=== PATIENT | female | born 1955 | race Caucasian/White ===

== ENCOUNTER 2018-11-16 08:00 | Outpatient (CLI) | payer OTHER ==
[2018-11-16 18:30] LABS: PT - PROTHROMBIN TIME 22.2 secs (9.9-12.6)
== END 2018-11-16 23:59 | disposition home or self-care (01) ==
LOC: LAB.F 08:00
DX: I48.0 Paroxysmal atrial fibrillation (principal); Z79.01 Long term (current) use of anticoagulants
CPT/HCPCS: 36415; 85610

== ENCOUNTER 2019-01-03 14:03 | Outpatient (CLI) | payer OTHER | END 2019-01-03 14:04 | disposition home or self-care (01) | LOC: LAB.F 14:03 | PROVIDERS: ATTEND Internal Medicine | DX: I48.0 Paroxysmal atrial fibrillation (principal) | CPT/HCPCS: 85610 ==

== ENCOUNTER 2019-04-14 | Outpatient (CLI) | payer OTHER | END 2019-04-14 07:42 | disposition critical access hospital (66) | DX: R10.9 Unspecified abdominal pain (principal) | CPT/HCPCS: A0425; A0427 ==

== ENCOUNTER 2019-04-14 08:09 | Inpatient (IN) | payer OTHER ==
[2019-04-14] MEDS ORDERED: SODIUM CHLORIDE 0.9% 1,000 ML IV ONE ×3 (08:20→14:20)
[2019-04-14] MEDS ORDERED: HYDROmorphone 1 MG/ML CARPUJECT IVP STA ×3 (08:20→12:19)
[2019-04-14] MEDS ORDERED: ONDANSETRON 4 MG/2 ML VIAL IVP STA (08:20)
--- NOTE | 2019-04-14 08:24 | ED Physician Documentation ---
PD HPI ABD PAIN - Stated complaint Stated Complaint: ABD PX - Chief complaint Chief Complaint: Abd Pain - History obtained from History obtained from: Patient - History of Present Illness Timing - onset: How many hours ago (3) Timing - details: Abrupt onset, Still present Quality: Pain Location: RUQ Associated symptoms: No: Fever, Nausea, Vomiting, Diarrhea, Dysuria Similar symptoms before: Has not had sx before - Treatment prior to arrival Treatment prior to arrival: Medics administered 250 mcg Fentanyl. - Additional information Additional information: The patient is a 63-year-old female who presents via ambulance complaining of right-sided abdominal pain. Her pain started abruptly about 3 hours prior to arrival, awaking her from sleep. She denies associated fever, nausea or vomiting, or dysuria. She denies history of similar symptoms in the past. She is 3 years status post bariatric surgery. She is also status post appendectomy. She has history of atrial fibrillation, and is on warfarin. She also has history of type 2 diabetes. She and her are traveling in a motor home, and have no local physician. Review of Systems Constitutional: denies: Fever Ears: denies: Tinnitus/ringing Nose: denies: Congestion Throat: denies: Sore throat Cardiac: denies: Chest pain / pressure Respiratory: denies: Dyspnea, Cough GI: reports: Abdominal Pain. denies: Nausea, Vomiting, Diarrhea : denies: Dysuria Skin: denies: Rash Musculoskeletal: denies: Back pain Neurologic: denies: Focal weakness, Numbness, Headache PD PAST MEDICAL HISTORY - Past Medical History Cardiovascular: Atrial fibrillation Endocrine/Autoimmune: Type 2 diabetes - Past Surgical History General: Appendectomy, Gastric surgery - Present Medications Home Medications: Ambulatory Orders Medication Instructions Recorded Confirmed Atorvastatin [Lipitor] 20 mg DAILY 04/14/19 04/14/19 Cyanocobalamin (Vitamin B-12) 1 04/14/19 [Cyanocobalamin Injection] Metoprolol Tartrate 25 mg PO DAILY 04/14/19 04/14/19 Warfarin [Coumadin] 2 mg PO 1400 04/14/19 04/14/19 metFORMIN [Glucophage] 500 mg BID 04/14/19 04/14/19 - Allergies Allergies/Adverse Reactions: Allergies Allergy/AdvReac Type Severity Reaction Status Date / Time codeine Allergy Unknown Verified 04/14/19 08:20 adhesive tape AdvReac Unknown Verified 04/14/19 08:20 - Living Situation Living Situation: reports: With spouse/s.o. - Social History Additional Social History: Traveling in a motor home from [facility]. PD ED PE NORMAL - Vitals Vital signs reviewed: Yes (Hypertensive) - General General: Alert and oriented X 3, Well developed/nourished, Other (Appears uncomfortable.) - HEENT HEENT: Atraumatic, Moist mucous membranes - Neck Neck: Supple, no meningeal sign, No adenopathy - Cardiac Cardiac: RRR - Respiratory Respiratory: No respiratory distress, Clear bilaterally - Abdomen Abdomen: Soft, Other (Tenderness to palpation in the right upper quadrant, without rebound or guarding.) - Back Back: No CVA TTP - Derm Derm: No rash - Extremities Extremities: No edema, No calf tenderness / cord - Neuro Neuro: Alert and oriented X 3, No motor deficit, Normal speech Results - Vitals Vitals: Vital Signs - 24 hr 04/14/19 04/14/19 04/14/19 08:09 08:30 09:30 Temperature 36.6 C Heart Rate 67 56 L 66 Respiratory 20 20 20 Rate Blood Pressure 150/116 H 165/64 H 143/61 H O2 Saturation 100 95 94 04/14/19 10:30 Temperature Heart Rate 70 Respiratory 20 Rate Blood Pressure 162/68 H O2 Saturation 99 Oxygen O2 Source Room air - Labs Labs: Laboratory Tests 04/14/19 04/14/19 04/14/19 08:32 08:32 08:32 WBC 6.1 RBC 3.41 L Hgb 10.6 L Hct 31.7 L MCV 93.0 MCH 31.1 H MCHC 33.4 RDW 13.5 Plt Count 134 MPV 11.8 H Neut # (Auto) 3.9 Lymph # (Auto) 1.6 [place] # (Auto) 0.5 Eos # (Auto) 0.1 Baso # (Auto) 0.0 Absolute Nucleated RBC 0.00 Nucleated RBC % 0.0 PT 36.0 H INR 3.3 H Sodium 142 Potassium 3.7 Chloride 108 Carbon Dioxide 18 L Anion Gap 16.0 H BUN 27 H Creatinine 1.1 H Estimated GFR (MDRD) 50 L Glucose 147 H Calcium 9.7 Total Bilirubin 0.8 AST 40 ALT 41 Alkaline Phosphatase 71 Total Protein 7.1 Albumin 4.0 Globulin 3.1 Albumin/Globulin Ratio 1.3 Lipase 71 H Urine Color Urine Clarity Urine pH Ur Specific Gary Urine Protein Urine Glucose (UA) Urine Ketones Urine Occult Blood Urine Nitrite Urine Bilirubin Urine Urobilinogen Ur Leukocyte Esterase Urine RBC Urine WBC Ur Squamous Epith Cells Urine Bacteria Ur Microscopic Review Urine Culture Comments Blood Type Recheck 04/14/19 04/14/19 08:32 11:33 WBC RBC Hgb Hct MCV MCH MCHC RDW Plt Count MPV Neut # (Auto) Lymph # (Auto) [place] # (Auto) Eos # (Auto) Baso # (Auto) Absolute Nucleated RBC Nucleated RBC % PT INR Sodium Potassium Chloride Carbon Dioxide Anion Gap BUN Creatinine Estimated GFR (MDRD) Glucose Calcium Total Bilirubin AST ALT Alkaline Phosphatase Total Protein Albumin Globulin Albumin/Globulin Ratio Lipase Urine Color YELLOW Urine Clarity CLEAR Urine pH 6.0 Ur Specific Gary 1.010 Urine Protein NEGATIVE Urine Glucose (UA) NEGATIVE Urine Ketones TRACE Urine Occult Blood NEGATIVE Urine Nitrite NEGATIVE Urine Bilirubin NEGATIVE Urine Urobilinogen 0.2 (NORMAL) Ur Leukocyte Esterase SMALL H Urine RBC None Seen Urine WBC 6-10 H Ur Squamous Epith Cells RARE Squamous Urine Bacteria Few Ur Microscopic Review INDICATED Urine Culture Comments INDICATED Blood Type Recheck O NEGATIVE - Rads (name of study) RUQ U/S Radiology: Prelim report reviewed, EMP read contemporaneously, See rad report (1) Mildly distended gallbladder with borderline collateral wall thickening. Per report, the patient had pain with right upper quadrant imaging. No gallstones. No evidence of pericholecystic fluid. 2) Normal common bile duct. 3) Heterogeneous and mildly hyperechoic liver parenchyma. Suspect fatty infiltration in this post bariatric surgery patient. No mass or intraparotid bile duct dilatation. 4) Study limited by body habitus and bowel gas artifact.) CT abd/pelvis Radiology: Prelim report reviewed, EMP read contemporaneously, See rad report (Small bowel closed loop obstruction in the right upper quadrant due to an internal hernia, potentially through right mesocolon. Portions of herniated bowel are nonenhancing/hypoenhancing, suggesting vascular compromise. No free air as yet.) PD MEDICAL DECISION MAKING - ED course Complexity details: reviewed results, re-evaluated patient, considered differential, d/w patient, d/w family, d/w emergency management consultant ED course: The patient's presentation is most consistent with internal hernia with closed- loop bowel obstruction. CT scan of the abdomen pelvis reveals decreased enhancement of the incarcerated bowel loop. This is a surgical emergency requiring prompt surgical intervention. Treatment in the emergency department included administration of normal saline 1 L IV, fentanyl 75 mcg IV x2 followed by Dilaudid 1 mg IV x2. The patient's pain diminished but was not resolved with the above treatment. Her nausea did resolve after administration of Zofran 4 mg IV followed by Phenergan 12.5 mg IV x2. Prior to CT scan an ultrasound of the right upper quadrant was performed based on her tenderness to palpation of the right upper quadrant and her history of sudden onset of abdominal pain. The ultrasound was nonrevealing. Following results of the CT scan I discussed her condition with Dr. Levi who evaluated her promptly in the emergency department, and took her to the operatin g room for surgical intervention. Departure - Departure Disposition: 66 [facility] DC/Noel Clinical Impression: Small bowel obstruction with strangulation or infarction Condition: Stable Discharge Date/Time: 04/14/19 14:22
[2019-04-14 08:46] LABS: INR 3.3 (0.8-1.2)
[2019-04-14 08:52] LABS: BASOPHILS % (AUTO) 0.5 %; EOSINOPHILS # (AUTO) 0.1 10^3/uL (0.0-0.7); EOSINOPHILS % (AUTO) 1.3 %; HGB - HEMOGLOBIN 10.6 g/dL (12.0-16.0); LYMPHOCYTES # (AUTO) 1.6 10^3/uL (1.5-3.5); LYMPHOCYTES % (AUTO) 25.7 %; MEAN CORPUSCULAR HEMOGLOBIN 31.1 pg (27.0-31.0); MEAN CORPUSCULAR HGB CONC 33.4 g/dL (32.0-36.0); MEAN PLATELET VOLUME 11.8 fL (7.9-10.8); MONOCYTES # (AUTO) 0.5 10^3/uL (0.0-1.0); MONOCYTES % (AUTO) 7.9 %; NEUTROPHILS # (AUTO) 3.9 10^3/uL (1.5-6.6); NEUTROPHILS % (AUTO) 63.9 %; PLT - PLATELET COUNT 134 10^3/uL (130-450); RED BLOOD COUNT 3.41 10^6/uL (4.20-5.40); RED CELL DISTRIBUTION WIDTH 13.5 % (12.0-15.0); WHITE BLOOD COUNT 6.1 x10^3/uL (4.8-10.8)
[2019-04-14 08:53] LABS: ALBUMIN/GLOBULIN RATIO 1.3 (1.0-2.2); BILIRUBIN,TOTAL 0.8 mg/dL (0.2-1.0); CALCIUM 9.7 mg/dL (8.5-10.3); CREATININE 1.1 mg/dL (0.4-1.0); TOTAL PROTEIN 7.1 g/dL (6.7-8.2)
[2019-04-14] MEDS ORDERED: PROMETHAZINE INJ 12.5 MG in SODIUM CHLORIDE 0.9% 50 ML IV STA ×2 (10:06→12:20)
[2019-04-14] MEDS ORDERED: HYDROmorphone 1 MG/ML CARPUJECT ONE (10:10)
--- NOTE | 2019-04-14 11:46 | Ultrasound Report ---
Reason: RUQ abd. pain Procedure Date: 04/14/2019 Accession Number: [id number] / [id number] Procedure: US - Abdomen Limited CPT Code: FULL RESULT: EXAM: ABDOMEN LIMITED EXAM DATE: 04/14/2019 11:27 AM INDICATION: RUQ abd. pain. COMPARISONS: None. FINDINGS: Liver: Limited visualization. Liver parenchyma is mildly heterogeneous and hyperechoic. No mass or intrahepatic bile duct dilation is noted. 17.8 cm. Main portal vein flow: Hepatopetal. Gallbladder: Gallbladder is mildly distended and has an irregular shape. Mildly thickened giraldo measuring up to 3.2 mm. No obvious stones. Per report, the patient had right upper quadrant pain with imaging. Biliary System: CBD measures 4.3 mm. No intrahepatic or extrahepatic ductal dilatation. Pancreas: Normal. Right kidney: 12.4 cm. Echogenic renal cortex noted. No hydronephrosis. Abdominal aorta and IVC: Normal. Other: Technically limited study due to body habitus and bowel gas. Limited sonographic windows. IMPRESSION: 1. Mildly distended gallbladder with borderline collateral wall thickening. Per report, the patient had pain with right upper quadrant imaging. No gallstones. No evidence of pericholecystic fluid. 2. Normal common bile duct. 3. Heterogeneous and mildly hyperechoic liver parenchyma. Suspect fatty infiltration in this post bariatric surgery patient. No mass or intraparotid bile duct dilation. 4. Study limited by body habitus and bowel gas artifact. RADIA
[2019-04-14 12:07] LABS: BILIRUBIN,URINE NEGATIVE (NEGATIVE); CLARITY,URINE CLEAR (CLEAR); GLUCOSE, URINE (UA) NEGATIVE (NEGATIVE); KETONES,URINE (UA) TRACE mg/dL (NEGATIVE); LEUKOCYTE ESTERASE, URINE SMALL (NEGATIVE); NITRITE,URINE NEGATIVE (NEGATIVE); OCCULT BLOOD,URINE NEGATIVE (NEGATIVE); PROTEIN,URINE NEGATIVE (NEGATIVE); UROBILINOGEN,URINE 0.2 (NORMAL) E.U./dL (NORMAL)
[2019-04-14 12:15] LABS: BACTERIA,URINE Few /HPF (None Seen); RBC,URINE None Seen /HPF (0-5); SQUAMOUS EPITHELIAL CELL,UR RARE Squamous (<= Few)
[2019-04-14] MEDS ORDERED: IOVERSOL 320 100 ML VIAL IVP ONE ×2 (12:41→16:34)
--- NOTE | 2019-04-14 13:52 | CT Report ---
Reason: right sided abdominal pain; h/o bariatric surgery. Procedure Date: 04/14/2019 Accession Number: [id number] / [id number] Procedure: CT - Abdomen/Pelvis W CPT Code: FULL RESULT: EXAM: CT ABDOMEN AND PELVIS EXAM DATE: 04/14/2019 01:19 PM. CLINICAL HISTORY: Right-sided abdominal pain; history of bariatric surgery. COMPARISONS: None. TECHNIQUE: Routine helical CT imaging was performed through the abdomen and pelvis. IV contrast: OPTI 320 100 mL. Enteric contrast: No. Reconstructions: Coronal and sagittal. In accordance with CT protocol optimization, one or more of the following dose reduction techniques were utilized for this exam: automated exposure control, adjustment of mA and/or KV based on patient size, or use of iterative reconstructive technique. FINDINGS: Lung Bases: Unremarkable. Liver: Normal. No masses. Gallbladder/Bile Ducts: Unremarkable. Spleen: Numerous hypodense indeterminate splenic lesion, largest one measuring up to 1.9 cm. Pancreas: Normal. Adrenal Glands: Normal. 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 Left kidney is normal. Peritoneal Cavity/Bowel: There is an internal hernia, image 35 series 3, image 12 series 5 and image 44 series 6. Herniated bowel demonstrates hypoenhancement with interloop fluid. Herniation is likely through mesocolon. No free air. No lymphadenopathy. Pelvic Organs: Bladder is markedly distended. Vasculature: No aneurysms or other significant abnormality. Bones: No significant abnormality. Other: None. IMPRESSION: Small bowel closed loop obstruction in the right upper quadrant due to internal hernia, potentially through right mesocolon. Portions of herniated bowel are nonenhancing/hypoenhancing, suggesting vascular compromise. No free air as yet. Indeterminate splenic lesions. CRITICAL RESULT: The findings were discussed with Dr. Gustafson on 04/14/2019 at 1:40 PM in person. MARJAN
--- NOTE | 2019-04-14 14:04 | ANESTHESIA ---
Pre-Anesthesia VS, & Labs - Diagnosis complete small bowel obstruction, closed loop - Procedure exploratory laparotomy Vital Signs: Temp Pulse Resp BP Pulse Ox 36.6 C 70 20 162/68 H 99 04/14/19 08:09 04/14/19 10:30 04/14/19 10:30 04/14/19 10:30 04/14/19 10:30 Height 5 ft 6 in Weight (kg) 73.936 kg Body Mass Index 26.3 - NPO >8 hours, Other (actively nauseous) - Is Patient ?: Not Applicable - Lab Results Current Lab Results: Laboratory Tests 04/14/19 08:32: Sodium 142, Potassium 3.7, Chloride 108, Carbon Dioxide 18 L, Anion Gap 16.0 H, BUN 27 H, Creatinine 1.1 H, Estimated GFR (MDRD) 50 L, Glucose 147 H, Calcium 9.7, Total Bilirubin 0.8, AST 40, ALT 41, Alkaline Phosphatase 71, Total Protein 7.1, Albumin 4.0, Globulin 3.1, Albumin/Globulin Ratio 1.3, Lipase 71 H 04/14/19 08:32: PT 36.0 H, INR 3.3 H 04/14/19 08:32: WBC 6.1, RBC 3.41 L, Hgb 10.6 L, Hct 31.7 L, MCV 93.0, MCH 31.1 H, MCHC 33.4, RDW 13.5, Plt Count 134, MPV 11.8 H, Neut # (Auto) 3.9, Lymph # (Auto) 1.6, [place] # (Auto) 0.5, Eos # (Auto) 0.1, Baso # (Auto) 0.0, Absolute Nucleated RBC 0.00, Nucleated RBC % 0.0 Fish Bones: 04/14/19 08:32 04/14/19 08:32 Home Medications and Allergies Home Medications: Ambulatory Orders Atorvastatin [Lipitor] 20 mg DAILY 04/14/19 Cyanocobalamin (Vitamin B-12) [Cyanocobalamin Injection] 1 04/14/19 Metoprolol Tartrate 25 mg PO DAILY 04/14/19 Warfarin [Coumadin] 2 mg PO 1400 04/14/19 metFORMIN [Glucophage] 500 mg BID 04/14/19 Active Medications Sodium Chloride (Normal Saline 0.9%) 1,000 mls @ 150 mls/hr IV .Q6H40M ONE Stop: 04/14/19 20:27 Last Admin: 04/14/19 13:52 Dose: 150 mls/hr Atorvastatin [Lipitor] 20 mg DAILY 04/14/19 Cyanocobalamin (Vitamin B-12) [Cyanocobalamin Injection] 1 04/14/19 Metoprolol Tartrate 25 mg PO DAILY 04/14/19 Warfarin [Coumadin] 2 mg PO 1400 04/14/19 metFORMIN [Glucophage] 500 mg BID 04/14/19 Allergies/Adverse Reactions: Allergies Allergy/AdvReac Type Severity Reaction Status Date / Time codeine Allergy Unknown Verified 04/14/19 08:20 adhesive tape AdvReac Unknown Verified 04/14/19 08:20 Anes History & Medical History - Anesthetic History Anesthesia Complications: reports: No previous complications - Medical History Cardiovascular: reports: Atrial fibrillation Pulmonary: reports: None Gastrointestinal: reports: None Endocrine/Autoimmune: reports: Type 2 diabetes - Surgical History General: Appendectomy, Gastric surgery Orthopedic: Other (hand surgery) Exam General: Alert Dental: WNL Mouth Opening: Greater than 4 Fingerbreadths Neck Mobility: Normal Mallampati classification: II Respiratory: Lungs clear Cardiovascular: Normal S1, Normal S2 Plan Anesthesia Type: General Consent for Procedure(s) Verified and Reviewed: Yes Code Status: Attempt Resuscitation ASA classification: 3-Severe systemic disease Is this case an emergency?: Yes
--- NOTE | 2019-04-14 14:17 | CONSULTATION NOTE ---
Referring Provider Name of Referring Provider:: Johann Gustafson MD Consult Date: 04/14/19 Chief Complaint - Chief Complaint Chief Complaint: Abdominal pain with nausea and vomiting History of Present Illness - Admitted From Admitted From:: [facility] emergency department room 7 - History Obtained From Records Reviewed: Yes. History obtained from: Patient, , Dr. Gustafson. Exam Limitations: Patient is slightly somnolent secondary to pain medication given. - History of Present Illness HPI Comment/Other: Patient is a very pleasant 63-year-old female who is traveling along with her in a motor home when there was the abrupt onset of abdominal pain associated with nausea and vomiting this morning. They normally live in [facility] and I believe her brother has a house here on [facility]. The pain has been unremitting and is described as sharp. The patient points to the epigastrium and slightly to the right. Importantly, the patient has had laparoscopic gastric bypass surgery. She has not had this type of pain previo usly. History - Past Medical History Cardiovascular: reports: Atrial fibrillation Respiratory: reports: None Endocrine/Autoimmune: reports: Type 2 diabetes GI: reports: None - Past Surgical History General: reports: Appendectomy, Gastric surgery Ortho: reports: Other (hand surgery) - Family & Social History Living Situation: With spouse/s.o. Social History Notes: Traveling in a motor home from [facility]. Meds/Allgy - Home Medications Home Medications: Ambulatory Orders Medication Instructions Recorded Confirmed Atorvastatin [Lipitor] 20 mg DAILY 04/14/19 04/14/19 Cyanocobalamin (Vitamin B-12) 1 04/14/19 [Cyanocobalamin Injection] Metoprolol Tartrate 25 mg PO DAILY 04/14/19 04/14/19 Warfarin [Coumadin] 2 mg PO 1400 04/14/19 04/14/19 metFORMIN [Glucophage] 500 mg BID 04/14/19 04/14/19 - Allergies Allergies/Adverse Reactions: Allergies Allergy/AdvReac Type Severity Reaction Status Date / Time codeine Allergy Unknown Verified 04/14/19 08:20 adhesive tape AdvReac Unknown Verified 04/14/19 08:20 Review of Systems - Constitutional Constitutional: denies: Fatigue - Eyes Eyes: denies: Pain - Ears, Nose & Throat Ears, Nose & Throat: denies: Ear pain - Cardiovascular Cariovascular: reports: Irregular heart rate - Respiratory Respiratory: denies: Cough - Gastrointestinal Gastrointestinal: reports: Abdominal pain, Nausea, Vomiting - Musculoskeletal Musculoskeletal: denies: Muscle pain, Back pain - Integumentary Integumentary: denies: Rash - Neurological Neurological: denies: General weakness, Focal weakness Exam - Vital Signs Reviewed Vital Signs: Yes Vital Signs: Vital Signs x48h Temp Pulse Resp BP Pulse Ox 04/14/19 10:30 70 20 162/68 H 99 04/14/19 09:30 66 20 143/61 H 94 04/14/19 08:30 56 L 20 165/64 H 95 04/14/19 08:09 36.6 C 67 20 150/116 H 100 - Physical Exam General Appearance: positive: Mild distress Eyes Bilateral: positive: No lid inflammation, Conjunctivae nml, No scleral icterus ENT: positive: Dry mucous membranes Neck: positive: Trachea midline Respiratory: positive: Chest non-tender, Breath sounds nml Cardiovascular: positive: Irregularly irregular Abdomen: positive: Tenderness (In the epigastrium and right upper quadrant. Somewhat peritoneal. No bowel sounds.) Skin: positive: Color nml Extremities: positive: Nml appearance Neurologic/Psychiatric: positive: Oriented x3, Motor nml, Sensation nml, Mood/affect nml Conclusion/Plan - Diagnosis Diagnosis: Closed small loop small bowel obstruction with compromised bowel as evidenced by no IV contrast seen on CT. - Plan Plan: Emergent operation for an exploratory laparotomy with likely lysis of adhesions and possible bowel resection. If the bowel will "pink up" then a resection will not be necessary. On the other hand, if the bowels necrotic obviously a bowel resection and anastomosis would be in order. The indications, procedure, and possible complications including but not limited to infection and bleeding were fully explained to the patient and her all questions were answered. Verbal and written consent was obtained. I explained the emergent nature of this operation and they are in agreement. The patient received preoperative antibiotics to prophylax against surgical infection and teds and Venodyne's will be placed for prophylax against deep venous thrombosis. I have asked him to let us know if there is any way we can make her stay at [facility] more comfortable. 30 minutes of [id number] time was spent with the patient, almost all in explanation and discussion, coordination of their care and completion of the requisite paperwork Lydia disclaimer: This document was created in part using voice recognition technology. Because of the inherent limitations of the system ([employer]'s Dragon Dictate user manual states that the licensee understands that speech recognition is a statistical process and that recognition errors are inherent in the process), occasional same sounding word substitutions and grammatical errors do occur and persist despite proofreading. Please read this document for context. - Lab Results Fish Bones: 04/14/19 08:32 04/14/19 08:32 - Diagnostic Imaging Results Diagnostic Imaging Results: positive: Final report reviewed, Discussed with radiologist (In person with Dr. Murray.)
[2019-04-14] MEDS ORDERED: BUPIVACAINE 0.5% PF 10 ML VIAL ONE (14:23)
[2019-04-14] MEDS ORDERED: BUPIVACAINE 0.5% PF 30 ML VIAL INFIL ONE ×2 (15:12)
[2019-04-14] MEDS ORDERED: SUGAMMADEX 200 MG/2 ML VIAL IVP ONE (15:31)
[2019-04-14] MEDS ORDERED: SODIUM CHLORIDE FLUSH 0.9% 10 ML SYRINGE IVP PRN (15:36)
[2019-04-14] MEDS ORDERED: ONDANSETRON 4 MG/2 ML VIAL IVP PRN (15:36)
--- NOTE | 2019-04-14 15:45 | OPERATIVE REPORT ---
Operative Report - General Admit Date: 04/14/19 Planned Procedure: Exploratory laparotomy, lysis of adhesions, possible bowel resection Pre-Op Diagnosis: Closed loop complete small bowel obstruction Procedure Performed: Exploratory laparotomy and adhesiolysis Post Op Diagnosis: Adhesions resulting in closed loop small bowel obstruction - Procedure Note Primary Surgeon: Matthias De Luna MD Anesthesia Provider: Matthias Leal MD Anesthesia Technique: General ET tube, Local (30 mL of half percent Marcaine) IV Fluids (mL): 500 Estimated Blood Loss (mL): 10 Drain/Tube Type: Other (None.) Complications: None. - Other Other Information/Narrative: OPERATIVE DESCRIPTION/REPORT: After verbal and written informed consent was obtained detailing the risks of infection, bleeding requiring transfusion with its risks, nerve injury, and , and after I met with the patient confirming the surgery and the site of the surgery, the patient was brought to the operative suite and placed supine on the operating table. Great care was taken to avoid pressure points to prevent pressure necrosis or nerve injury. Monitoring devices were applied along with TEDs and pneumatic compressive stockings (to prevent DVT). The patient received preoperative antibiotics for surgical prophylaxis. Dr. Matthias Leal sedated and anesthetized the patient for the entire procedure. The patient was prepped and draped in the usual sterile manner. With the patient draped my initials were clearly visible. A "time in" then confirmed that the patient was identified with 3 identifiers (name, date and medical record number), the history and physical was in the chart, the signed consent confirming the procedure was in the chart, the patient was in the correct position, the aforementioned prophylactic measures were in place or given, we had the correct personnel and equipment to complete the procedure and that anesthesia, surgery and nursing were given an opportunity to express any concerns. With the agreement of everyone in the room, we proceeded with the operation. After reviewing the CT scan in person with the radiologist in order to plan the surgery, a vertical midline incision was made and dissection was carried down to the linea alba using a combination of, scalpel, and Bovie electrocautery. The linea alba was incised using a knife and the peritoneum was picked up and incised using Metzenbaum scissors entering the abdomen without incident. This incision was then lengthened to the length of my skin incision using Bovie electrocautery using my fingers to protect the bowel. Examination of the bowel and abdominal contents revealed an adhesive band 1/4 inch from my fascial incision to the right lateral side and this was cut using Metzenbaum scissors releasing one side of the closed-loop obstruction. Examination then revealed the second band to be an omental adhesion down into the pelvis going down towards the pelvis that was transected using application of the LigaSure. This freed up both sides of the closed loop obstruction. The small bowel was then run from the terminal ileum to both sides of the Emre limb. The limb going to the stomach was traced specifically to ensure that there was no further obstruction. The abdomen was copiously irrigated using warm sterile saline. The fascia was closed using oh looped PDS in a running fashion. The subcutaneous tissues were copiously irrigated, and then closed using an interrupted 2-0 Vicryl. Meticulous hemostasis was obtained using Bovie electrocautery. The skin incision was approximated with a running 4-0 Monocryl. The skin was cleaned of its prep and Dermabond was applied. At this point a time out was performed that confirmed that all the counts were correct, the procedure that was performed, the blood loss, the urine output, the IV fluids administered, and the patients condition. Having tolerated the procedure well, the patient was subsequently extubated and taken to recovery room in good and stable condition. [employer] disclaimer: This document was created in part using voice recognition technology. Because of the inherent limitations of the system ([employer]'s [employer] user manual states that the licensee understands that speech recognition is a statistical process and that recognition errors are inherent in the process), occasional same sounding word substitutions and grammatical errors do occur and persist despite proofreading. Please read this document for context.
[2019-04-14] MEDS ORDERED: LACTATED RINGERS 1,000 ML IV ONE (16:01)
[2019-04-14] MEDS: ACETAMINOPHEN 1,000 MG/100 ML 100 ML IV SCH ×2 (16:07→21:08)
[2019-04-14] MEDS: LACTATED RINGERS 1,000 ML IV SCH (16:53)
[2019-04-14] MEDS: SODIUM CHLORIDE FLUSH 0.9% 10 ML SYRINGE IVP SCH (17:23)
[2019-04-14] MEDS: INSULIN ASPART 300 UNIT/3 ML PEN SUBQ SCH (21:08)
[2019-04-15] MEDS: SODIUM CHLORIDE FLUSH 0.9% 10 ML SYRINGE IVP SCH ×3 (00:08→17:13)
[2019-04-15] MEDS: ACETAMINOPHEN 1,000 MG/100 ML 100 ML IV SCH ×4 (04:40→21:17)
[2019-04-15 04:55] LABS: BASOPHILS % (AUTO) 0.1 %; EOSINOPHILS % (AUTO) 1.7 %; HGB - HEMOGLOBIN 9.9 g/dL (12.0-16.0); LYMPHOCYTES % (AUTO) 5.5 %; MEAN CORPUSCULAR HEMOGLOBIN 31.3 pg (27.0-31.0); MEAN CORPUSCULAR HGB CONC 33.3 g/dL (32.0-36.0); MEAN PLATELET VOLUME 11.8 fL (7.9-10.8); MONOCYTES % (AUTO) 10.1 %; NEUTROPHILS % (AUTO) 82.3 %; RED BLOOD COUNT 3.16 10^6/uL (4.20-5.40); RED CELL DISTRIBUTION WIDTH 13.3 % (12.0-15.0)
[2019-04-15 05:00] LABS: PLT - PLATELET COUNT 134 10^3/uL (130-450)
[2019-04-15 05:01] LABS: ABNORMAL LYMPHS % (MANUAL) 0 %
[2019-04-15 05:10] LABS: ALBUMIN 3.4 g/dL (3.2-5.5); ALBUMIN/GLOBULIN RATIO 1.3 (1.0-2.2); BILIRUBIN,TOTAL 0.6 mg/dL (0.2-1.0); CALCIUM 8.8 mg/dL (8.5-10.3); CREATININE 1.2 mg/dL (0.4-1.0); TOTAL PROTEIN 6.1 g/dL (6.7-8.2)
[2019-04-15 05:30] LABS: BAND NEUTROPHILS % (MANUAL) 2 %; DIFFERENTIAL COMMENT MANUAL DIFFERENTIAL; LYMPHOCYTES # (MANUAL) 1.7 10^3/uL (1.5-3.5); LYMPHOCYTES % (MANUAL) 11 %; MONOCYTES # (MANUAL) 1.2 10^3/uL (0.0-1.0); PLATELET ESTIMATE, MANUAL NORMAL (130-450,000) (NORMAL); RBC MORPHOLOGY (MULTIPLE) NORMAL APPEARANCE (NORMAL)
[2019-04-15] MEDS: PANTOPRAZOLE 40 MG TABLET PO SCH (06:20)
[2019-04-15] MEDS: ATORVASTATIN 10 MG TABLET PO SCH (09:39)
[2019-04-15] MEDS: INSULIN ASPART 300 UNIT/3 ML PEN SUBQ SCH ×4 (09:40→21:18)
[2019-04-15] MEDS: METOPROLOL TARTRATE 25 MG TABLET PO SCH (09:42)
[2019-04-15] MEDS ORDERED: CYANOCOBALAMIN 1,000 MCG/ML VIAL IM SCH (10:00)
[2019-04-15] MEDS: LACTATED RINGERS 1,000 ML IV SCH (10:00)
[2019-04-15 12:50] LABS: PT - PROTHROMBIN TIME 49.2 secs (9.9-12.6)
[2019-04-15 13:07] LABS: INR 4.5 (0.8-1.2)
[2019-04-15] MEDS: HYDROmorphone 1 MG/ML CARPUJECT IVP PRN ×2 (13:35→17:19)
[2019-04-15] MEDS ORDERED: WARFARIN 5 MG TABLET PO SCH (14:00)
--- NOTE | 2019-04-15 21:37 | PROVIDER PROGRESS NOTE ---
Subjective - General Admit Date: 04/14/19 Procedure Date: 04/14/19 Post Op Days: 1 Procedure Performed: Exploratory laparotomy - Review of Systems Wound/Incisions: positive: Healing well General: positive: No symptoms HEENT: positive: No symptoms Pulmonary: positive: No symptoms Cardiovascular: positive: No symptoms Gastrointestinal: positive: Nausea (Some.), Flatus, Other (No BM yet.) Genitourinary: positive: No symptoms Musculoskeletal: positive: No symptoms Skin: positive: No symptoms Objective - Patient Data Reviewed Vital Signs: Yes Vital Signs: Vital Signs x48h Temp Pulse Pulse Resp BP Pulse Ox 04/15/19 19:44 36.5 C 54 L 18 121/60 98 04/15/19 16:43 36.5 C 57 L 18 100 04/15/19 16:00 36.5 C 57 L 18 134/51 H 100 Weight: Weight 04/13/19 04/14/19 04/15/19 23:59 23:59 23:59 Weight (kg) 73.9 kg Intake & Output: Intake and Output Totals x24h 04/13/19 04/14/19 04/15/19 23:59 23:59 23:59 Intake Total 2501.0 2404 Output Total 850 625 Balance 1651.0 1779 - Lab Results Lab Results: 04/15/19 04:20 04/15/19 04:20 Other Lab Results: Lab Results x24hrs 04/15/19 04/15/19 04/15/19 Range/Units 12:00 04:20 04:20 WBC 15.0 H (4.8-10.8) x10^3/uL RBC 3.16 L (4.20-5.40) 10^6/uL Hgb 9.9 L (12.0-16.0) g/dL Hct 29.7 L (37.0-47.0) % MCV 94.0 (81.0-99.0) fL MCH 31.3 H (27.0-31.0) pg MCHC 33.3 (32.0-36.0) g/dL RDW 13.3 (12.0-15.0) % Plt Count 134 (130-450) 10^3/uL MPV 11.8 H (7.9-10.8) fL Neut # (Auto) Not Reportable Lymph # (Auto) Not Reportable [place] # (Auto) Not Reportable Eos # (Auto) Not Reportable Baso # (Auto) Not Reportable Absolute Nucleated RBC Not Reportable Total Counted 100 Band Neuts % (Manual) 2 (0 - 10) % Abnorm Lymph % (Manual) 0 % Nucleated RBC % Not Reportable Neutrophils # (Manual) 12.2 H (1.5-6.6) 10^3/uL Lymphocytes # (Manual) 1.7 (1.5-3.5) 10^3/uL Monocytes # (Manual) 1.2 H (0.0-1.0) 10^3/uL Eosinophils # (Manual) 0.0 (0-0.7) 10^3/uL Basophils # (Manual) 0.0 (0-0.1) 10^3/uL Differential Comment MANUAL DIFFERENTIAL Platelet Estimate NORMAL (130-450,000) (NORMAL) RBC Morph Micro Appear NORMAL APPEARANCE (NORMAL) PT 49.2 H (9.9-12.6) secs INR 4.5 H* (0.8-1.2) Sodium 139 (135-145) mmol/L Potassium 4.3 (3.5-5.0) mmol/L Chloride 108 (101-111) mmol/L Carbon Dioxide 21 (21-32) mmol/L Anion Gap 10.0 (6-13) BUN 24 H (6-20) mg/dL Creatinine 1.2 H (0.4-1.0) mg/dL Estimated GFR (MDRD) 45 L (>89) Glucose 255 H (70-100) mg/dL Calcium 8.8 (8.5-10.3) mg/dL Total Bilirubin 0.6 (0.2-1.0) mg/dL AST 27 (10-42) IU/L ALT 29 (10-60) IU/L Alkaline Phosphatase 61 (42-121) IU/L Total Protein 6.1 L (6.7-8.2) g/dL Albumin 3.4 (3.2-5.5) g/dL Globulin 2.7 (2.1-4.2) g/dL Albumin/Globulin Ratio 1.3 (1.0-2.2) - Current Medications Current Medications: Current Medications Generic Name Dose Route Start Last Admin Trade Name Freq PRN Reason Stop Dose Admin Atorvastatin Calcium 20 mg 08/02/19 09:00 04/15/19 09:39 Lipitor PO 20 mg DAILY ZHANG Administration Hydromorphone HCl 0.5 mg 04/14/19 15:36 04/15/19 17:19 Dilaudid Inj Carp IVP 0.5 mg Q2HR PRN Administration PAIN Lactated Ringer's 1,000 mls @ 50 mls/hr 04/14/19 16:00 04/15/19 10:00 Lr IV 50 mls/hr .Q20H ZHANG Administration Acetaminophen 100 mls @ 400 mls/hr 04/14/19 16:00 04/15/19 21:17 Ofirmev IV 400 mls/hr Q6H ZHANG Administration Insulin Aspart 1 - 5 unit 04/14/19 21:00 04/15/19 21:18 Novolog SUBQ 2 unit 0800,1200,1700,2100 ZHANG Administration Protocol Metoprolol Tartrate 25 mg 04/15/19 09:00 04/15/19 09:42 Lopressor PO 25 mg DAILY ZHANG Administration Pantoprazole Sodium 40 mg 04/15/19 07:00 04/15/19 06:20 Protonix PO 40 mg QDAC ZHANG Administration Sodium Chloride 10 ml 04/14/19 17:00 04/15/19 17:13 Normal Saline Flush 0.9% IVP Not Given 0100,0900,1700 [facility] Warfarin Sodium 5 mg 04/15/19 14:00 04/15/19 13:11 Coumadin PO Not Given [id number] [facility] - Physical Exam Wound/Incisions: positive: Healing well General Appearance: positive: No acute distress Eyes Bilateral: positive: No lid inflammation, Conjunctivae nml, No scleral icterus ENT: positive: No signs of dehydration Neck: positive: Trachea midline Respiratory: positive: Chest non-tender, No respiratory distress, Breath sounds nml Cardiovascular: positive: Regular rate & rhythm Abdomen: positive: Nml bowel sounds Skin: positive: Color nml Extremities: positive: Non-tender, Nml appearance ABX Reporting Has patient been on IV antibiotics over the past 48 hours?: Yes Impression/Plan - Problem List Problem List: D1 s/p exploratory laparotomy and adhesiolysis Improving with passing gas but no bowel movement and pain and nausea are preventing her discharge yet. When I stopped by to see her she had already walked in halls three times. Tolerating fluid diet. My expectation is discharge home within the next 24 to 48 hours assuming the patient continues to improve. Encouraged to keep walking.
[2019-04-16] MEDS: SODIUM CHLORIDE FLUSH 0.9% 10 ML SYRINGE IVP SCH ×2 (02:57→08:42)
[2019-04-16] MEDS: ACETAMINOPHEN 1,000 MG/100 ML 100 ML IV SCH ×2 (03:31→10:11)
[2019-04-16] MEDS: LACTATED RINGERS 1,000 ML IV SCH (03:31)
[2019-04-16] MEDS: PANTOPRAZOLE 40 MG TABLET PO SCH (06:03)
[2019-04-16 06:33] LABS: INR 4.4 (0.8-1.2); PT - PROTHROMBIN TIME 48.6 secs (9.9-12.6)
[2019-04-16 07:32] VITALS: BP 141/64
[2019-04-16] MEDS: METOPROLOL TARTRATE 25 MG TABLET PO SCH (08:41)
[2019-04-16] MEDS: INSULIN ASPART 300 UNIT/3 ML PEN SUBQ SCH ×2 (08:41→12:11)
[2019-04-16] MEDS: ATORVASTATIN 10 MG TABLET PO SCH (08:41)
--- NOTE | 2019-04-16 10:38 | DISCHARGE SUMMARY ---
"Discharge Summary Admit Date: 04/14/19 Discharge Date: 04/16/19 Discharging Provider: Annamarie Code Status: Attempt Resuscitation Condition at Discharge: Good Discharge Disposition: 01 Home, Self Care - DIAGNOSES Admission Diagnoses: Adhesive closed loop small bowel obstruction Discharge Diagnoses with Status of Each Condition: Resolved with operation on 04-14-19 - History of Present Illness: 63 year old very pleasant female with history of gastric bypass operation who presented with acute onset of abdominal pain associated with nausea and vomiting. CT confirmed closed loop SBO. - CONSULTS | PROCEDURES Consultations: Surgery (Annamarie) Procedures: Exploratory laparotomy with adhesiolysis 04/14/19 [place] - ALLERGIES Allergies/Adverse Reactions: Allergies Allergy/AdvReac Type Severity Reaction Status Date / Time codeine Allergy Itching Verified 04/15/19 09:15 adhesive tape AdvReac Unknown Verified 04/14/19 08:20 - MEDICATIONS Home Medications: Ambulatory Orders Medication Instructions Recorded Confirmed Atorvastatin [Lipitor] 20 mg PO DAILY 04/14/19 04/15/19 Cyanocobalamin (Vitamin B-12) 1,000 mcg IM Q30D 04/14/19 04/15/19 [Cyanocobalamin Injection] Metoprolol Tartrate 25 mg PO DAILY 04/14/19 04/15/19 metFORMIN [Glucophage] 500 mg PO BID 04/14/19 04/15/19 Calcium Carb/Mag Ox/Zinc Sulf [[facility] 1 tab PO DAILY 04/15/19 04/15/19 [id number] Cplt] Cholecalciferol (Vitamin D3) 2,000 units PO DAILY 04/15/19 04/15/19 [Vitamin D3] Multivitamin [Multivitamins] 1 cap PO DAILY 04/15/19 04/15/19 Warfarin [Coumadin] 5 mg PO MOWEFR 04/15/19 04/15/19 Warfarin [Coumadin] 10 mg PO SUTUTHSA 04/15/19 04/15/19 - PHYSICAL EXAM AT DISCHARGE General Appearance: positive: No acute distress Eyes Bilateral: positive: Normal inspection, No lid inflammation, Conjunctivae nml, No scleral icterus ENT: positive: No signs of dehydration Neck: positive: Trachea midline Respiratory: positive: Chest non-tender, No respiratory distress, Breath sounds nml Cardiovascular: positive: Regular rate & rhythm Abdomen: positive: Non-tender, No organomegaly, Nml bowel sounds Skin: positive: Color nml Extremities: positive: Non-tender, Full ROM, Nml appearance Neurologic/Psychiatric: positive: Oriented x3, Motor nml, Sensation nml, Mood/affect nml - LABS Result Diagrams: 04/15/19 04:20 04/15/19 04:20 - FOLLOW UP Follow Up: General surgery (Dr. De Luna) in 7-10 days - TIME SPENT Time Spent in Discharge (Minutes): 45"
--- NOTE | 2019-04-16 10:43 | Discharge Plan ---
Discharge Plan Problem Reviewed?: Yes Disposition: Home, Self Care Condition: Good Prescriptions: Docusate Sodium 250Mg Capsule [Colace 250Mg Capsule] 250 mg PO DAILY #10 capsule HYDROcod/ACETAM 5/325 [[place] 5/325] 1 each PO Q4H #15 tablet Diet: Regular Activity Restrictions: No Restrictions (Other than no lifting >15 pounds for 6 weeks.) Shower Restrictions: No Driving Restrictions: No Weight Bearing: Full Weight Instruction Topics: Docusate capsules, Acetaminophen Hydrocodone tablets or capsules, Laparotomy Exploratory No Smoking: If you smoke, Please STOP! Call for help. Follow-up with: Matthias De Luna MD [Provider Admit Priv/Credential] -
[2019-04-16] MEDS ORDERED: WARFARIN 5 MG TABLET PO SCH (14:00)
[2019-04-28] MEDS ORDERED: CYANOCOBALAMIN 1,000 MCG/ML VIAL IM SCH (09:00)
== END 2019-04-16 12:30 | disposition home or self-care (01) | DRG 337 ==
LOC: EDUNIT# → ED 08:09 → MS2 14:05 → ED 14:22 → MS2 16:11
PROVIDERS: ADMIT Surgery; ATTEND Surgery
PROC: 0DN80ZZ Release Small Intestine, Open Approach (ICD-10-PCS; principal; 2019-04-14 14:00)
DX: K56.52 Intestinal adhesions [bands] with complete obstruction (principal); Z98.84 Bariatric surgery status; I48.91 Unspecified atrial fibrillation; E11.9 Type 2 diabetes mellitus without complications; Z79.01 Long term (current) use of anticoagulants; Z79.84 Long term (current) use of oral hypoglycemic drugs
CPT/HCPCS: 36415; 74177; 76705; 80053; 81001; 83690; 85025; 85610; 86850; 86900; 86901; 87086; 96361; 96365; 96366; 96368; 96375; 96376; 99284; 99285; A9270; J0131; J1170; J7040; J7120; Q9967; 81003

== ENCOUNTER 2019-04-18 | Outpatient (CLI) | payer OTHER | END 2019-04-18 13:26 | disposition home or self-care (01) | DX: I48.0 Paroxysmal atrial fibrillation (principal) ==

== ENCOUNTER 2019-04-21 08:22 | Outpatient (CLI) | payer OTHER | END 2019-04-21 08:23 | disposition home or self-care (01) | LOC: LAB.S 08:22 | PROVIDERS: ATTEND Internal Medicine | DX: I48.0 Paroxysmal atrial fibrillation (principal) | CPT/HCPCS: 85610 ==

== ENCOUNTER 2022-12-29 18:30 | Emergency (ER) | payer MEDICARE, OTHER ==
[2022-12-29 18:44] VITALS: BP 168/67
[2022-12-29 18:57] LABS: BILIRUBIN,URINE NEGATIVE (NEGATIVE); GLUCOSE, URINE (UA) NEGATIVE (NEGATIVE); KETONES,URINE (UA) NEGATIVE (NEGATIVE); LEUKOCYTE ESTERASE, URINE TRACE (NEGATIVE); NITRITE,URINE NEGATIVE (NEGATIVE); OCCULT BLOOD,URINE NEGATIVE (NEGATIVE); PH,URINE 5.5 PH (5.0-7.5); PROTEIN,URINE NEGATIVE (NEGATIVE); UROBILINOGEN,URINE 0.2 (NORMAL) E.U./dL (NORMAL)
[2022-12-29 18:59] LABS: BASOPHILS % (AUTO) 0.5 %; EOSINOPHILS # (AUTO) 0.1 10^3/uL (0.0-0.7); EOSINOPHILS % (AUTO) 1.5 %; HCT - HEMATOCRIT 33.8 % (37.0-47.0); HGB - HEMOGLOBIN 11.2 g/dL (12.0-16.0); LYMPHOCYTES # (AUTO) 2.6 10^3/uL (1.5-3.5); LYMPHOCYTES % (AUTO) 30.8 %; MEAN CORPUSCULAR HEMOGLOBIN 31.5 pg (27.0-31.0); MEAN CORPUSCULAR HGB CONC 33.1 g/dL (32.0-36.0); MEAN CORPUSCULAR VOLUME 94.9 fL (81.0-99.0); MONOCYTES # (AUTO) 0.8 10^3/uL (0.0-1.0); MONOCYTES % (AUTO) 8.8 %; NEUTROPHILS % (AUTO) 58.3 %; PLT - PLATELET COUNT 152 10^3/uL (130-450); RED BLOOD COUNT 3.56 10^6/uL (4.20-5.40); RED CELL DISTRIBUTION WIDTH 13.3 % (12.0-15.0); WHITE BLOOD COUNT 8.5 x10^3/uL (4.8-10.8)
[2022-12-29 19:01] LABS: CLARITY,URINE HAZY (CLEAR)
[2022-12-29 19:08] LABS: BACTERIA,URINE Rare /HPF (None Seen); RBC,URINE 0-5 /HPF (0-5); SQUAMOUS EPITHELIAL CELL,UR NONE SEEN (<= Few)
[2022-12-29 19:13] LABS: ALBUMIN 4.1 g/dL (3.2-5.5); ALBUMIN/GLOBULIN RATIO 1.5 (1.0-2.2); BILIRUBIN,TOTAL 0.4 mg/dL (0.2-1.0); CALCIUM 9.1 mg/dL (8.5-10.3); POTASSIUM 4.1 mmol/L (3.5-5.0); TOTAL PROTEIN 6.9 g/dL (6.7-8.2)
--- NOTE | 2022-12-29 19:41 | ED Physician Documentation ---
History of Present Illness - Stated complaint Stated Complaint: FEMALE - Chief complaint Chief Complaint: Abd Pain - Additonal information Additional information: 67-year-old female presents to the emergency department for concerns that she is having a uterine prolapse or vaginal bleeding. States she has not had a period for at least 20 years. She is unsure what age she entered menopause as she previously had an IUD. Over the weekend when she was using the restroom she felt a protrusion in her vaginal area and when wiping had some blood. She does have some mild cramping. No fevers. Patient is quite adamant that this is vaginal bleeding and not rectal Past surgical history is most significant for gastric bypass as well as small bowel obstruction secondary to adhesions. Review of Systems Constitutional: reports: Reviewed and negative Cardiac: reports: Reviewed and negative Respiratory: reports: Reviewed and negative GI: reports: Abdominal Pain : reports: Vaginal bleeding Skin: reports: Reviewed and negative PD PAST MEDICAL HISTORY - Past Medical History Cardiovascular: Atrial fibrillation Respiratory: None Endocrine/Autoimmune: Type 2 diabetes GI: None - Past Surgical History General: Appendectomy, Gastric surgery Ortho: Other - Present Medications Home Medications: Ambulatory Orders Medication Instructions Recorded Confirmed Atorvastatin [Lipitor] 20 mg PO DAILY 04/14/19 04/15/19 Cyanocobalamin (Vitamin B-12) 1,000 mcg IM Q30D 04/14/19 04/15/19 [Cyanocobalamin Injection] Metoprolol Tartrate 25 mg PO DAILY 04/14/19 04/15/19 metFORMIN [Glucophage] 500 mg PO BID 04/14/19 04/15/19 Calcium Carb/Mag Ox/Zinc Sulf [[facility] 1 tab PO DAILY 04/15/19 04/15/19 [id number] Cplt] Cholecalciferol (Vitamin D3) 2,000 units PO DAILY 04/15/19 04/15/19 [Vitamin D3] Multivitamin [Multivitamins] 1 cap PO DAILY 04/15/19 04/15/19 Warfarin [Coumadin] 5 mg PO MOWEFR 04/15/19 04/15/19 Warfarin [Coumadin] 10 mg PO SUTUTHSA 04/15/19 04/15/19 Docusate Sodium 250Mg Capsule 250 mg PO DAILY #10 capsule 04/16/19 [Colace 250Mg Capsule] HYDROcod/ACETAM 5/325 [[place] 5/325] 1 each PO Q4H #15 tablet 04/16/19 - Allergies Allergies/Adverse Reactions: Allergies Allergy/AdvReac Type Severity Reaction Status Date / Time codeine Allergy Itching Verified 12/29/22 18:39 adhesive tape AdvReac Unknown Verified 12/29/22 18:39 - Social History Smoking Status: Never smoker PD ED PE NORMAL - General General: Alert and oriented X 3, No acute distress, Well developed/nourished - Neck Neck: Supple, no meningeal sign, No adenopathy - Cardiac Cardiac: RRR, No murmur - Respiratory Respiratory: No respiratory distress - Abdomen Abdomen: Normal bowel sounds. No: Non tender (no tenderness elicited on exam) - Female Female : [employer] present (Chaperoned cervical exam reveals no obvious uterine prolapse. The cervix is intact though there is a soft nonfluctuant growth at the 12:00 hour resembling a horn. Nontender pelvic exam.) - Rectal Rectal: Other (No rectal bleeding noted) Results - Vitals Vitals: Vital Signs - 24 hr 12/29/22 12/29/22 18:39 19:48 Temperature 36.5 C Heart Rate 59 L 87 Respiratory 16 18 Rate Blood Pressure 168/67 H O2 Saturation 100 100 Oxygen O2 Source Room air - Labs Labs: Laboratory Tests 12/29/22 12/29/22 12/29/22 18:53 18:55 18:55 WBC 8.5 RBC 3.56 L Hgb 11.2 L Hct 33.8 L MCV 94.9 MCH 31.5 H MCHC 33.1 RDW 13.3 Plt Count 152 MPV 11.0 H Neut # (Auto) 5.0 Lymph # (Auto) 2.6 [place] # (Auto) 0.8 Eos # (Auto) 0.1 Baso # (Auto) 0.0 Absolute Nucleated RBC 0.00 Nucleated RBC % 0.0 Sodium 139 Potassium 4.1 Chloride 107 Carbon Dioxide 25 Anion Gap 7.0 BUN 25 H Creatinine 1.0 Estimated GFR (MDRD) 55 L Glucose 116 H Calcium 9.1 Total Bilirubin 0.4 AST 22 ALT 25 Alkaline Phosphatase 82 Total Protein 6.9 Albumin 4.1 Globulin 2.8 Albumin/Globulin Ratio 1.5 Lipase 48 Urine Color YELLOW Urine Clarity HAZY Urine pH 5.5 Ur Specific [place] 1.020 Urine Protein NEGATIVE Urine Glucose (UA) NEGATIVE Urine Ketones NEGATIVE Urine Occult Blood NEGATIVE Urine Nitrite NEGATIVE Urine Bilirubin NEGATIVE Urine Urobilinogen 0.2 (NORMAL) Ur Leukocyte Esterase TRACE H Urine RBC 0-5 Urine WBC 4-5 Ur Squamous Epith Cells NONE SEEN Urine Bacteria Rare Ur Microscopic Review INDICATED Urine Culture Comments INDICATED PD Medical Decision Making - ED course Complexity details: reviewed results, considered differential, d/w patient ED course: 67-year-old female presented to the emergency department for evaluation of vaginal bleeding and concerns that she was having a prolapse. She states that she has not had a menstrual cycle for at least 20 years and previous to that she had an IUD in place. Here in the emergency department a pelvic exam did not reveal any obvious blood in either the vaginal or rectal vault. There is also no prolapse noted. I did offer a pelvic ultrasound for further differentiation of the postmenopausal bleeding as her differential includes endometrial cancer. However the patient declined to wait for imaging in the ER. She states she has an appointment with her OB on February 12. I encouraged her to attempt to be seen sooner if able. Otherwise return to the ER with any worsening conditions. Departure - Departure Disposition: 01 Home, Self Care Clinical Impression: Postmenopausal vaginal bleeding Condition: Stable Record reviewed to determine appropriate education?: Yes Comments: As discussed at the bedside you came to the emergency department today because you noticed some vaginal bleeding after urinating. You also felt a pressure and fullness in your pelvic region that you were concerned was a prolapse. Your labs today did not show any worrisome findings. There was no obvious bleeding during your pelvic exam. You were offered a pelvic ultrasound for further evaluation of your uterus and ovaries but declined to wait for that imaging. It is critical that you continue to follow closely with your primary care provider/OB. Any vaginal bleeding in postmenopausal women is very worrisome for cancer. Return to the ER if you find that you have worsening symptoms.
== END 2022-12-29 20:52 | disposition home or self-care (01) ==
LOC: ED 18:30
DX: N95.0 Postmenopausal bleeding (principal); I48.91 Unspecified atrial fibrillation; E11.9 Type 2 diabetes mellitus without complications; Z79.84 Long term (current) use of oral hypoglycemic drugs; Z79.899 Other long term (current) drug therapy; Z79.01 Long term (current) use of anticoagulants
CPT/HCPCS: 36415; 80053; 81001; 81003; 83690; 85025; 87086; 99283; 99284

== ENCOUNTER 2024-06-03 12:58 | Outpatient (CLI) | payer MEDICARE, OTHER ==
[2024-06-03 19:43] LABS: BILIRUBIN,URINE NEGATIVE (NEGATIVE); GLUCOSE, URINE (UA) NEGATIVE (NEGATIVE); KETONES,URINE (UA) NEGATIVE (NEGATIVE); LEUKOCYTE ESTERASE, URINE MODERATE (NEGATIVE); NITRITE,URINE POSITIVE (NEGATIVE); OCCULT BLOOD,URINE MODERATE (NEGATIVE); PROTEIN,URINE TRACE mg/dL (NEGATIVE); UROBILINOGEN,URINE 0.2 (NORMAL) E.U./dL (NORMAL)
[2024-06-03 19:48] LABS: CLARITY,URINE CLOUDY (CLEAR)
[2024-06-03 19:59] LABS: BACTERIA,URINE Many /HPF (None Seen); RBC,URINE 0-5 /HPF (0-5); SQUAMOUS EPITHELIAL CELL,UR NONE SEEN (<= Few); WBC,URINE >25 /HPF (0-5)
== END 2024-06-03 12:59 | disposition home or self-care (01) ==
LOC: LAB.S 12:58
DX: R30.9 Painful micturition, unspecified (principal)
CPT/HCPCS: 81001; 81003; 87086; 87181